=== PATIENT | female | born 2000 | race Caucasian/White ===

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

== ENCOUNTER 2023-04-15 15:49 | Emergency (ER) | payer BC ==
[2023-04-15 16:05] VITALS: RESP 18; TEMP 96.9; O2SAT 97
[2023-04-15 16:19] LABS: HCG URINE TEST NEGATIVE (NEGATIVE)
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
[2023-04-15 17:50] VITALS: BP 109/63; PULSE 89
== END 2023-04-15 17:58 | disposition home or self-care (01) ==
LOC: ED 15:49
DX: S06.0X0A Concussion without loss of consciousness, initial encounter (principal); S16.1XXA Strain of muscle, fascia and tendon at neck level, initial encounter; V49.49XA Driver injured in collision with other motor vehicles in traffic accident, initial encounter; R51.9 Headache, unspecified; R42 Dizziness and giddiness; R11.2 Nausea with vomiting, unspecified; Z28.310 Unvaccinated for COVID-19
CPT/HCPCS: 70450; 72125; 81025; 99283

== ENCOUNTER 2023-12-31 19:47 | Emergency (ER) | payer BC ==
[2023-12-31 20:02] LABS: HCG URINE TEST NEGATIVE (NEGATIVE)
[2023-12-31 20:05] LABS: Appearance Clear (Clear); Bacteria None Seen /HPF (None Seen); Bilirubin Negative (Negative); Blood Negative (Negative); Epithelial Cells None Seen /HPF (None Seen); Glucose, Urine Negative (Negative); Hyaline Casts NONE SEEN /LPF (0-2); Ketones Negative (Negative); Leukocyte Esterase Negative (Negative); Nitrite Negative (Negative); Protein,Urine Dip Negative (Negative); RBC 0-2 /HPF (0-5); Specific Gravity 1.025 (1.005-1.030); Urobilinogen 0.2 mg/dL (0.2); WBC 0-2 /HPF (0-5)
[2023-12-31] MEDS: Zofran 4 MG/2 ML VIAL IV ONE (20:18)
[2023-12-31] MEDS ORDERED: Zofran 4 MG/2 ML VIAL ONE (20:18)
--- NOTE | 2023-12-31 20:18 | ERPHSYRPT ---
- History of Present Illness Time Seen by Provider: 12/31/23 19:51 Historian: patient Exam Limitations: no limitations Patient Subjective Stated Complaint: R sided mid back pain that radiates up to R shoulder. intermittent nausea. Triage Nursing Assessment: Pt c/o right sided middle back pain that radiates to R shoulder x 2 hours. States she also has nausea with it. Denies vomiting. Pt states she has been dealing with this off and on for a year. The pain is worse tonight than usual. States last BM today. States sometimes has issues with nause a and diarrhea. Abdomen soft on palpation. Bowel sounds present x 4 quadrants. No obvious abnormalities noted to back or shoulder. NKI. ROM of shoulder intact. Pt states stretching back/shoulder helps the pain. Skin PWD. Pt A & Ox3, vss on RA. Mother at bedside. Physician History: 23 years old presented in the ER with off-and-on pain right upper abdomen, mid to lower back with some radiation to the right shoulder. Patient reports moderate intensity sharp pain with associated nausea but no vomiting. She is scheduled to see her primary care tomorrow for this but her pain got worse tonight, was not easing up. Denies any fever or chills. No difficulty breathing. Pain in the shoulder blade area does not aggravated or relieved with movements of shoulder. Allergies/Adverse Reactions: Penicillins Allergy (Verified 04/15/23 15:57) Hx Tetanus, Diphtheria Vaccination/Date Given: Yes Hx Influenza Vaccination/Date Given: No Hx Pneumococcal Vaccination/Date Given: No Travel Risk - International Travel Have you traveled outside of the country in past 3 weeks: No - Emerging Infectious Disease Are you exhibiting symptoms associated with any current EIDs: No - Review of Systems Constitutional: No Symptoms Ears, Nose, & Throat: No Symptoms Respiratory: No Symptoms Cardiac: No Symptoms Abdominal/Gastrointestinal: Abdominal Pain, Nausea Genitourinary Symptoms: No Symptoms Musculoskeletal: No Symptoms Skin: No Symptoms Neurological: No Symptoms Endocrine: No Symptoms Hematologic/Lymphatic: No Symptoms - Past Medical History Pertinent Past Medical History: No Neurological History: No Pertinent History Cardiac History: No Pertinent History Respiratory History: No Pertinent History Endocrine Medical History: No Pertinent History Musculoskeletal History: No Pertinent History Other Medical History: HX RIGHT KNEE INJURY BUT PATIENT DOESN'T REMEMBER WHAT IT WAS. - Past Surgical History Past Surgical History: No Neuro Surgical History: No Pertinent History Cardiac: No Pertinent History Respiratory: No Pertinent History Gastrointestinal: No Pertinent History Genitourinary: No Pertinent History Musculoskeletal: No Pertinent History Female Surgical History: No Pertinent History - Female History Hx Last Menstrual Period: 12/03/2023 Hx Now: No - Social History Smoking Status: Never smoker Exposure to second hand smoke: No Drug Use: none Patient Lives Alone: No - Nursing Vital Signs Nursing Vital Signs: Initial Vital Signs Pulse Rate 90 12/31/23 20:30 Blood Pressure 92/56 12/31/23 20:30 O2 Sat by Pulse Oximetry 99 12/31/23 20:30 Pain Scale Pain Intensity [Right Back] 6 Pain Intensity 6 - Physical Exam General Appearance: no apparent distress Eye Exam: PERRL/EOMI Ears, Nose, Throat Exam: normal ENT inspection Neck Exam: normal inspection, full range of motion Respiratory Exam: normal breath sounds, lungs clear Cardiovascular Exam: regular rate/rhythm, normal heart sounds Gastrointestinal/Abdomen Exam: soft, normal bowel sounds, tenderness (Right upper quadrant), No rebound Back Exam: normal inspection, normal range of motion Extremity Exam: normal inspection, normal range of motion Neurologic Exam: alert, oriented x 3, cooperative Skin Exam: normal color SpO2 Interpretation: normal SpO2: 96 O2 Delivery: Room Air Ordered Tests: Active Orders 24 hr Category Date Time Status IV Insertion STAT Care 12/31/23 20:13 Active ABDOMEN AND PELVIS W/0 CONTRAS [CT] Stat Exams 12/31/23 20:14 Completed CBC W DIFF Stat Lab 12/31/23 20:25 Completed CMP Stat Lab 12/31/23 20:25 Completed HCG QUALITATIVE, URINE Stat Lab 12/31/23 19:57 Completed LIPASE Stat Lab 12/31/23 20:25 Completed POCT GLUCOSE Stat Lab 12/31/23 20:07 Completed UA W/RFX UR CULTURE Stat Lab 12/31/23 19:55 Completed Medication Summary Discontinued Medications Generic Name Dose Route Start Last Admin Trade Name Freq PRN Reason Stop Dose Admin Ondansetron HCl 4 mg 12/31/23 20:13 12/31/23 20:18 Ondansetron Hcl 4 Mg/2 Ml Vial IV 12/31/23 20:14 4 mg STAT ONE Administration Ondansetron HCl Confirm 12/31/23 20:18 Ondansetron Hcl 4 Mg/2 Ml Vial Administered 09/29/24 20:19 Dose 4 mg .ROUTE .[facility] Lab/Rad Data: Laboratory Result Diagrams 12/31/23 20:25 12/31/23 20:25 Laboratory Results 12/31/23 12/31/23 12/31/23 Range/Units 20:25 20:25 20:07 WBC 7.7 (3.98-10.04) x10^3/uL RBC 4.79 (3.93-5.22) x10^6/uL Hgb 13.7 (11.2-15.7) g/dL Hct 40.9 (34.1-44.9) % MCV 85.4 (79.4-94.8) fL MCH 28.6 (25.6-32.2) pg MCHC 33.5 (32.2-35.5) g/dL RDW 13.0 (11.7-14.4) % Plt Count 279 (182-369) x10^3/uL MPV 9.9 (9.4-12.3) fL Gran % 62.5 (34.0-71.1) % Immature Gran % (Auto) 0.1 (0.001-0.429) % Nucleat RBC Rel Count 0.0 (0.00-0.2) % Eos # (Auto) 0.05 (0.04-0.36) x10^3/uL Immature Gran # (Auto) 0.01 (0.001-0.031) x10^3u/L Absolute Lymphs (auto) 1.99 (1.18-3.74) x10^3/uL Absolute Monos (auto) 0.79 (0.24-0.86) x10^3/uL Absolute Nucleated RBC 0.00 (0.00-0.012) x10^3u/L Lymphocytes % 26.0 (19.3-51.7) % Monocytes % 10.3 (4.7-12.5) % Eosinophils % 0.7 (0.7-5.8) % Basophils % 0.4 (0.1-1.2) % Absolute Granulocytes 4.79 (1.56-6.13) x10^3/uL Basophils # 0.03 (0.01-0.08) x10^3/uL Sodium 136 (135-145) mmol/L Potassium 4.0 (3.5-5.1) mmol/L Chloride 105 (98-107) mmol/L Carbon Dioxide 23 (22-30) mmol/L Anion Gap 12.2 (5-15) MEQ/L BUN 15 (7-17) mg/dL Creatinine 1.04 (0.52-1.04) mg/dL Estimated GFR 77.9 ML/MIN Glucose 100 (74-106) mg/dL POC Glucometer 92 (74 to 106) mg/dL Calcium 9.1 (8.4-10.2) mg/dL Total Bilirubin 0.40 (0.2-1.3) mg/dL AST 25 (14-36) U/L ALT 25 (0-35) U/L Alkaline Phosphatase 114 (38-126) U/L Serum Total Protein 7.6 (6.3-8.2) g/dL Albumin 4.0 (3.5-5.0) g/dL Lipase 188 (23-300) U/L Urine Color (Yellow) Urine Appearance (Clear) Urine pH (4.6-8.0) Ur Specific [place] (1.005-1.030) Urine Protein (Negative) Urine Glucose (UA) (Negative) mg/dL Urine Ketones (Negative) Urine Blood (Negative) Urine Nitrite (Negative) Urine Bilirubin (Negative) Urine Urobilinogen (0.2) mg/dL Ur Leukocyte Esterase (Negative) U Hyaline Cast (Auto) (0-2) /LPF Urine Microscopic RBC (0-5) /HPF Urine Microscopic WBC (0-5) /HPF Ur Epithelial Cells (None Seen) /HPF Urine Bacteria (None Seen) /HPF Urine Culture Reflexed (NO) Urine HCG, Qual (NEGATIVE) 12/31/23 12/31/23 Range/Units 19:57 19:55 WBC (3.98-10.04) x10^3/uL RBC (3.93-5.22) x10^6/uL Hgb (11.2-15.7) g/dL Hct (34.1-44.9) % MCV (79.4-94.8) fL MCH (25.6-32.2) pg MCHC (32.2-35.5) g/dL RDW (11.7-14.4) % Plt Count (182-369) x10^3/uL MPV (9.4-12.3) fL Gran % (34.0-71.1) % Immature Gran % (Auto) (0.001-0.429) % Nucleat RBC Rel Count (0.00-0.2) % Eos # (Auto) (0.04-0.36) x10^3/uL Immature Gran # (Auto) (0.001-0.031) x10^3u/L Absolute Lymphs (auto) (1.18-3.74) x10^3/uL Absolute Monos (auto) (0.24-0.86) x10^3/uL Absolute Nucleated RBC (0.00-0.012) x10^3u/L Lymphocytes % (19.3-51.7) % Monocytes % (4.7-12.5) % Eosinophils % (0.7-5.8) % Basophils % (0.1-1.2) % Absolute Granulocytes (1.56-6.13) x10^3/uL Basophils # (0.01-0.08) x10^3/uL Sodium (135-145) mmol/L Potassium (3.5-5.1) mmol/L Chloride (98-107) mmol/L Carbon Dioxide (22-30) mmol/L Anion Gap (5-15) MEQ/L BUN (7-17) mg/dL Creatinine (0.52-1.04) mg/dL Estimated GFR ML/MIN Glucose (74-106) mg/dL POC Glucometer (74 to 106) mg/dL Calcium (8.4-10.2) mg/dL Total Bilirubin (0.2-1.3) mg/dL AST (14-36) U/L ALT (0-35) U/L Alkaline Phosphatase (38-126) U/L Serum Total Protein (6.3-8.2) g/dL Albumin (3.5-5.0) g/dL Lipase (23-300) U/L Urine Color Yellow (Yellow) Urine Appearance Clear (Clear) Urine pH 6.0 (4.6-8.0) Ur Specific [place] 1.025 (1.005-1.030) Urine Protein Negative (Negative) Urine Glucose (UA) Negative (Negative) mg/dL Urine Ketones Negative (Negative) Urine Blood Negative (Negative) Urine Nitrite Negative (Negative) Urine Bilirubin Negative (Negative) Urine Urobilinogen 0.2 (0.2) mg/dL Ur Leukocyte Esterase Negative (Negative) U Hyaline Cast (Auto) NONE SEEN (0-2) /LPF Urine Microscopic RBC 0-2 (0-5) /HPF Urine Microscopic WBC 0-2 (0-5) /HPF Ur Epithelial Cells None Seen (None Seen) /HPF Urine Bacteria None Seen (None Seen) /HPF Urine Culture Reflexed NO (NO) Urine HCG, Qual NEGATIVE (NEGATIVE) - Progress Progress: improved Progress Note: 12/31/23 22:13 23 years old is evaluated in the ER for abdominal pain with some radiation to the right shoulder blade area. Patient is given fluids and symptomatic treatme nt for nausea, on reevaluation she is feeling better. Has some tenderness in the upper abdomen with no guarding or rebound tenderness. Offered pain medication which she declined. Workup showed normal white count, normal chemistries with liver enzymes and lipase. No UTI. Obtain CT abdomen pelvis without contrast which is negative for acute cholecystitis, pancreatitis, obstruction/perforation but does have some element of constipation. Recommended symptomatic/supportive care and outpatient follow-up. Discussed signs symptoms of worsening needing return to ER which she seems understanding. Counseled pt/family regarding: lab results, diagnosis, need for follow-up, rad results Medical Desision Making - Independent Historian Additional History obtained from: Mother - Diagnostic Testing Diagnostic test were ordered, analyzed, and reviewed by me: Yes Radiological Interpretation: Reviewed by me, Teleradiologist Report - Risk of complications The pt has a mod risk of morbidity or mortality based on: Need for prescription drug management - Departure Departure Disposition: Home Clinical Impression: Right sided abdominal pain, Constipation Condition: Stable Critical Care Time: No Referrals: KRISH NAJERA NP [Primary Care Provider] - Follow up with PCP 1 day Instructions: Abdominal Pain, Adult ED, Constipation, Adult ED Additional Instructions: Tylenol/ibuprofen as needed. Daily MiraLAX and stool softener. Follow-up with primary care for reevaluation. Return to ER for intractable pain/nausea vomiting etc. Prescriptions: Polyethylene Glycol 3350 17 gm [Miralax Powder 17GM PACKET] 17 gm PO DAILY #30 packet
[2023-12-31 20:28] LABS: Absolute Neutrophil Ct (ANC) 4.79 x10^3/uL (1.56-6.13); BASOPHIL % 0.4 % (0.1-1.2); Basophil (Absolute #) 0.03 x10^3/uL (0.01-0.08); Eosinophil % 0.7 % (0.7-5.8); Eosinophil (Absolute #) 0.05 x10^3/uL (0.04-0.36); Hematocrit 40.9 % (34.1-44.9); Hemoglobin 13.7 g/dL (11.2-15.7); IMMATURE GRAN # 0.01 x10^3u/L (0.001-0.031); IMMATURE GRAN % 0.1 % (0.001-0.429); Lymphocyte (Absolute #) 1.99 x10^3/uL (1.18-3.74); Mean Cell Volume 85.4 fL (79.4-94.8); Mean Corpuscular Hemoglobin 28.6 pg (25.6-32.2); Mean Corpuscular Hgb Concent. 33.5 g/dL (32.2-35.5); Mean Platelet Volume 9.9 fL (9.4-12.3); Monocyte (Absolute #) 0.79 x10^3/uL (0.24-0.86); Monocytes % 10.3 % (4.7-12.5); Neutrophil % 62.5 % (34.0-71.1); Platelet Count 279 x10^3/uL (182-369); Red Blood Count 4.79 x10^6/uL (3.93-5.22); White Blood Count 7.7 x10^3/uL (3.98-10.04)
[2023-12-31 20:42] LABS: ANION GAP 12.2 MEQ/L (5-15); BILIRUBIN,TOTAL 0.4 mg/dL (0.2-1.3); Calcium 9.1 mg/dL (8.4-10.2); Creatinine 1 1.04 mg/dL (0.52-1.04); EST GLOMERULAR FILTRATION RATE 77.9 ML/MIN; Total Protein 7.6 g/dL (6.3-8.2)
[2023-12-31 21:16] VITALS: PULSE 91
--- NOTE | 2023-12-31 21:34 | XRAY ---
CLINICAL HISTORY: ruq pain COMPARISON: No prior studies are available for comparison. TECHNIQUE: Non-contrast CT of the abdomen and pelvis was performed, with the following protocol: axial images, and reconstructed coronal and sagittal images. No intravenous contrast was administered. One of the following dose reduction techniques was utilized for this exam: Automated exposure control, adjustment of the mA and/or kV according to patient size, and use of iterative reconstruction. FINDINGS: Abdomen: Liver: Normal in size, shape, and density. No focal lesions, cysts, or masses were identified. Gallbladder and Biliary System: The gallbladder is suboptimally distended. No pericholecystic fluid or fat stranding is identified. Pancreas: Pancreatic head, body, and tail are visualized and appear normal in size and density. No pancreatic masses or calcifications were noted. Spleen: Normal in size, shape, and density. No splenic lesions or masses were identified. Kidneys and Adrenal Glands: Both kidneys are normal in size, shape, and position. Cortical thickness is within normal limits. No renal calculi or hydronephrosis. Adrenal glands are unremarkable. Appendix: The appendix is normal in size without jono appendiceal fat stranding and without an appendicolith. No evidence of appendiceal abscess or perforation. Pelvis: Urinary Bladder: Urinary bladder is almost collapsed. Uterus: Uterus is anteverted and normal in size and contour. No masses or abnormal thickening. Ovaries: Ovaries are separately visualized and appear grossly unremarkable. Minimal linear calcification is identified within the right ovary. Cervix: No evidence of mass or abnormal thickening. Peritoneal and Retroperitoneal Structures: No free fluid or abnormal fluid collections were identified within the abdomen or pelvis. No lymphadenopathy was noted. Bowel: The visualized bowel loops are normal in caliber and appearance. No evidence of bowel obstruction or wall thickening. Mild to moderate colonic fecal loading is identified, predominantly in the cecum, ascending and transverse colon. Bones and Soft Tissues: Pelvic bones and soft tissues are unremarkable. No fractures or abnormal masses were identified. Minimal, grade 1 retrolisthesis of L5 over S1 vertebral body is noted. Visualized lung choi are clear. IMPRESSION: 1. No acute abdominopelvic abnormality was identified. 2. Mild to moderate colonic fecal loading. Electronically Signed by: Dinesh Ramirez MD. (12/31/2023 21:30:58 EDT)
[2023-12-31 22:16] VITALS: O2SAT 96
[2023-12-31 22:26] VITALS: BP 120/81
== END 2023-12-31 22:25 | disposition home or self-care (01) ==
LOC: ED 19:47
DX: K59.00 Constipation, unspecified (principal); R10.11 Right upper quadrant pain; M54.50 Low back pain, unspecified; M54.6 Pain in thoracic spine; M25.511 Pain in right shoulder; Z79.899 Other long term (current) drug therapy
CPT/HCPCS: 36000; 36415; 74176; 80053; 81001; 81025; 82947; 83690; 85025; 96374; 99284; J2405

== ENCOUNTER 2024-02-26 08:28 | Day surgery (SDC) | payer BC ==
[2024-02-26] MEDS ORDERED: Lactated Ringers 1,000 ML IV ONE (08:33)
[2024-02-26] MEDS ORDERED: CLINDAMYCIN-D5W 900 MG/50 ML*** 900 MG/50 ML BAG IV ONE (08:33)
[2024-02-26] MEDS ORDERED: Levofloxacin 500MG/100ML D5W 500 MG/100 ML BAG IV ONE (08:34)
[2024-02-26] MEDS: Lactated Ringers 1,000 ML IV SCH (08:37)
[2024-02-26] MEDS: CLINDAMYCIN-D5W 900 MG/50 ML*** 900 MG/50 ML BAG IV SCH (08:37)
[2024-02-26] MEDS: Levofloxacin 500MG/100ML D5W 500 MG/100 ML BAG IV SCH (08:38)
[2024-02-26 08:41] LABS: HCG URINE TEST NEGATIVE (NEGATIVE)
[2024-02-26] MEDS: Transderm Scop 1.5MG Patch TOP ONE (10:18)
[2024-02-26] MEDS: Reglan 10 MG/2 ML IV ONE (10:19)
[2024-02-26] MEDS: Pepcid 20 MG VIAL IV ONE (10:19)
--- NOTE | 2024-02-26 10:19 | HP ---
HISTORY OF PRESENT ILLNESS: She has some right upper quadrant pain, nausea, stool urgency for a year and a half, worse now. Ultrasound showed no stone but HIDA decreased at 34%. PAST MEDICAL HISTORY: Denies any chronic illness. HOME MEDICATIONS: None on a regular basis. ALLERGIES: Sensitive to Aleve and penicillin. PAST SURGICAL HISTORY: None. SOCIAL HISTORY: No smoking or alcohol abuse. FAMILY HISTORY: Negative. REVIEW OF SYSTEMS: Twelve systems reviewed. No chest pain or palpitations. Other systems negative or noncontributory as above and per preadmission questionnaire. PHYSICAL EXAMINATION: GENERAL: Height 5 feet 3 inches. BMI 31.89. No acute distress. HEENT: Sclerae nonicteric. NECK: No JVD. CHEST: Equal excursion, nonlabored breathing. CARDIOVASCULAR: Regular rate and rhythm. ABDOMEN: Soft. Nontender on office visit today. SKIN: Dry. EXTREMITIES: No cyanosis or edema. NEUROLOGIC: Alert and oriented. Moving extremities symmetrically. PSYCHIATRIC: Appropriate mood and affect. IMPRESSION: Acute exacerbation of chronic cholecystitis, symptomatic biliary dyskinesia. Recommend cholecystectomy. Shown the gallbladder pamphlet. Risks were explained in detail including, but not limited to, bleeding and infection; risk of bowel injury; risk of trocar injury; risk of hernia; risk of bile leak, bile duct injury or retained stone or sludge possibly requiring further procedure either ERCP or open procedure; risk of anesthesia, DVT, PE, pneumonia; risk of aches and pains, bloating, constipation, and/or loose stools possibly chronic in nature; possibility of no improvement of preop symptoms possibly requiring further workup, endoscopy, or other studies or procedures or referrals. Patient understands, agrees to planned procedure. We will proceed with laparoscopic cholecystectomy with possible open as an outpatient under general anesthetic.
[2024-02-26] MEDS ORDERED: ROCURONIUM BROMIDE IV ONE (10:50)
[2024-02-26] MEDS ORDERED: Versed 2 MG/2 ML Injection ONE (10:50)
[2024-02-26] MEDS ORDERED: DIPRIVAN 200 MG/20 ML IV ONE (10:50)
[2024-02-26] MEDS ORDERED: SUBLIMAZE 100 MCG/2 ML ONE ×2 (10:50→12:06)
[2024-02-26] MEDS ORDERED: Xylocaine-Mpf 2% 5 Ml Vial ONE (11:05)
[2024-02-26] MEDS ORDERED: Sensorcaine 0.25% 10 ML ONE (11:08)
[2024-02-26] MEDS ORDERED: Decadron 4 MG INJ ONE (11:15)
[2024-02-26] MEDS ORDERED: Sodium Chloride 0.9% 1000 ML 1,000 ML ONE (11:18)
[2024-02-26] MEDS ORDERED: Zofran 4 MG/2 ML VIAL ONE (11:40)
[2024-02-26] MEDS ORDERED: BRIDION 200MG/2ML IV ONE (11:40)
[2024-02-26 13:01] VITALS: RESP 18; TEMP 98.8
[2024-02-26 13:25] VITALS: BP 118/74; PULSE 77; O2SAT 97
--- NOTE | 2024-02-27 14:02 | OP ---
SURGERY DATE/TIME: 02/26/2024 [id number] PREOPERATIVE DIAGNOSIS: Acute exacerbation of chronic cholecystitis and symptomatic biliary dyskinesia. POSTOPERATIVE DIAGNOSIS: Acute exacerbation of chronic cholecystitis and symptomatic biliary dyskinesia. PROCEDURE: Laparoscopic cholecystectomy. SURGEON: Sean Tamez MD ANESTHESIA: General. ESTIMATED BLOOD LOSS: Minimal. INDICATIONS: As noted above. Risks and benefits were explained in detail, not limited to. Consent obtained. DESCRIPTION OF PROCEDURE AND FINDINGS: The patient was taken to the operating room. General anesthesia was induced. The patient was prepped and draped in the usual sterile fashion. After official time-out, no disagreement in planned procedure. Transverse incision made at the supraumbilical area. Fascia grasped and pulled upward. Because of her obesity, required a longer needle but easily passed the longer needle in and tested with saline. Pneumoperitoneum accomplished insufflating from an opening pressure of 0-15. An 11 mm bladeless port and camera inserted without difficulty, followed by two 5 mm right upper quadrant ports and 5 mm epigastric port. Gallbladder was grasped, had some chronic inflammation, and dissected posterolateral to anterior fashion slowly and carefully. Cystic duct/infundibular junction slowly, carefully well skeletonized until the critical view was obtained both anteriorly and posteriorly. Once this was accomplished, cystic duct/cystic artery clipped x3 and divided in the usual fashion. The gallbladder was slowly, carefully dissected free from its dense attachments to the liver bed staying directly on the gallbladder wall clipping additional oozing side branches off the cystic artery or vein as necessary directly on the gallbladder wall. Just prior to releasing it from its final attachments, the grasper just grabbing the gallbladder, it burst and had some bile spillage. There was no evidence of any stone or sludge spillage. This was suction irrigated as clear as possible and the gallbladder completely decompressed. The gallbladder was slowly and carefully dissected from its dense attachments to the liver bed just prior to releasing the final attachment to the anterior edge of the liver. The liver bed reinspected. The clips were noted to be in place in the cystic duct/cystic artery stumps. No signs of any active bleeding or bile leakage. Winder there was no benefit from drain placement. The fascial defect at the 1011 site was closed with puncture closure device and #1 Vicryl. The pneumoperitoneum was decompressed. Wounds irrigated out. Skin incision closed with 4-0 Vicryl. Steri-Strips and sterile dressing applied. The patient tolerated the procedure well. There were no immediate complications. Went to look for family and discuss findings with the family out in the waiting area.
== END 2024-02-26 13:25 | disposition home or self-care (01) ==
LOC: SDC 08:28
PROVIDERS: ATTEND Surgery
DX: K81.1 Chronic cholecystitis (principal); K82.8 Other specified diseases of gallbladder
CPT/HCPCS: 81025; J1100; J1956; J2250; J2405; J2704; J3010; A9270-GY